=== PATIENT | female | born 1970 ===

== ENCOUNTER 2019-02-11 19:47 | Emergency (ER) | payer SELFPAY ==
[2019-02-11 20:01] VITALS: BP 111/71
--- NOTE | 2019-02-11 20:34 | Event Note ---
ED Screening Note Date of service: 02/11/19 Time: 20:24 ED Screening Note: Patient reports chest pain. Reports that Dr. Isaacs reports that she has a hole in heart but unaware of specific location.. Report Dr. Ford with stestesscope. Denies any heart procedures. Chest pain x 1 month.Pain let chest and travela tto upper and lower back. Numbness and pain in left arm. Pain sharp.Pain is better after given asa asa oin Pain 8/10.. reports vomitting and nausea.. Reports sob. No cough. No abdominal pain. . Chills Alert and nont toxic in appearance++ VSS, AFEB CV S1S2 RRR Lungs: CTAB EXT. No CCE. +2 pulses Chest pain- Protocol This initial assessment/diagnostic orders/clinical plan/treatment(s) is/are subject to change based on patients health status, clinical progression and re- assessment by fellow clinical providers in the ED. Further treatment and workup at subsequent clinical providers discretion. Patient/guardian urged not to elope from the ED as their condition may be serious if not clinically assessed and managed. Initial orders include: CP protocol
[2019-02-11 20:58] LABS: Basophils # (Auto) 0.1 K/mm3 (0.0-0.1); Basophils % (Auto) 0.8 % (0.0-1.8); Eosinophils # (Auto) 0.2 K/mm3 (0.0-0.4); Eosinophils % (Auto) 2.6 % (0.0-4.3); Hematocrit 41.6 % (30.3-42.9); Hemoglobin 14.2 gm/dl (10.1-14.3); Lymphocytes # (Auto) 1.8 K/mm3 (1.2-5.4); Lymphocytes % (Auto) 19.8 % (13.4-35.0); Mean Corpuscular HGB Conc 34 % (30-34); Mean Corpuscular Volume 89 fl (79-97); Monocytes # (Auto) 0.4 K/mm3 (0.0-0.8); Monocytes % (Auto) 4.3 % (0.0-7.3); Platelet Count 314 K/mm3 (140-440); Red Cell Distribution Width 13.1 % (13.2-15.2)
[2019-02-11 21:10] LABS: INR 0.92 (0.87-1.13)
[2019-02-11 21:11] LABS: Partial Thromboplastin Time 27.5 Sec. (24.2-36.6)
[2019-02-11 21:18] LABS: Alanine Aminotransferase 25 units/L (7-56); BUN/Creatinine Ratio 20; Blood Urea Nitrogen 10 mg/dL (7-17); Calcium 8.7 mg/dL (8.4-10.2); Hemolysis Index 11
[2019-02-11] MEDS ORDERED: KETOROLAC 30 MG/1 ML INJ IV ONE (21:59)
--- NOTE | 2019-02-11 22:04 | Emergency Department Report ---
ED Chest Pain HPI - General Chief Complaint: Chest Pain Stated Complaint: CHEST PAIN Time Seen by Provider: 02/11/19 20:23 Source: patient, EMS Mode of arrival: Wheelchair Limitations: Language Barrier - History of Present Illness Initial Comments: Patient is a 48-year-old female with no significant past medical history. Patient brought to the emergency room accompanied by her daughter who is translating for her. She stated that she been having chest pain, sharp with no radiation mainly to the left upper chest. She stated that pain is increased w ith movement of her left shoulder. Patient denied any shortness of breath, fever or cough. MD Complaint: chest pain - Related Data Allergies Allergy/AdvReac Type Severity Reaction Status Date / Time No Known Allergies Allergy Unverified 02/11/19 20:31 Heart Score - HEART Score History: Slightly suspicious EKG: Normal Age: 45-65 Risk factors: No known risk factors Troponin: < normal limit HEART Score: 1 - Critical Actions Critical Actions: 0-3 pts:0.9-1.7%risk of adverse cardiac event.Candidate for discharge ED Review of Systems ROS: Stated complaint: CHEST PAIN Other details as noted in HPI Comment: All other systems reviewed and negative Constitutional: denies: chills, fever Respiratory: denies: cough, shortness of breath, SOB with exertion, SOB at rest, wheezing Cardiovascular: chest pain. denies: palpitations Gastrointestinal: denies: abdominal pain, nausea, vomiting, diarrhea, constipation, hematemesis, melena, hematochezia Musculoskeletal: denies: back pain Neurological: denies: headache, weakness, numbness, paresthesias, confusion, abnormal gait ED Past Medical Hx - Past Medical History Previous Medical History?: Yes Additional medical history: Heart Murmur - Surgical History Past Surgical History?: Yes Additional Surgical History: Hysterectomy - Social History Smoking Status: Never Smoker Substance Use Type: None ED Physical Exam - General Limitations: Language Barrier General appearance: alert, in no apparent distress - Head Head exam: Present: atraumatic, normocephalic, normal inspection - Eye Eye exam: Present: normal appearance - ENT ENT exam: Present: normal exam, normal orophraynx, mucous membranes moist - Neck Neck exam: Present: normal inspection, full ROM. Absent: tenderness, meningismus, lymphadenopathy, thyromegaly - Respiratory Respiratory exam: Present: normal lung sounds bilaterally, chest wall tenderness. Absent: respiratory distress, wheezes, rales, rhonchi, stridor, accessory muscle use, decreased breath sounds, prolonged expiratory - Cardiovascular Cardiovascular Exam: Present: regular rate, normal rhythm, normal heart sounds - GI/Abdominal GI/Abdominal exam: Present: soft, normal bowel sounds. Absent: distended, tenderness, guarding, rebound, rigid, organomegaly, mass, bruit, pulsatile mass, hernia - Extremities Exam Extremities exam: Present: normal inspection, full ROM, normal capillary refill. Absent: pedal edema, calf tenderness - Back Exam Back exam: Present: normal inspection, full ROM. Absent: CVA tenderness (R), CVA tenderness (L), muscle spasm, paraspinal tenderness, vertebral tenderness - Neurological Exam Neurological exam: Present: alert, oriented X3, CN II-XII intact, normal gait, reflexes normal - Psychiatric Psychiatric exam: Present: normal mood - Skin Skin exam: Present: warm, intact, normal color ED Course Vital Signs 02/11/19 20:00 Temperature 98.9 F Pulse Rate 78 Respiratory 12 Rate Blood Pressure 111/71 O2 Sat by Pulse 97 Oximetry ED Medical Decision Making - Lab Data Result diagrams: 02/11/19 20:40 02/11/19 20:40 - EKG Data -: EKG Interpreted by Tx EKG shows normal: sinus rhythm Rate: normal - EKG Data Interpretation: no acute changes - Radiology Data Radiology results: image reviewed - Medical Decision Making Patient is a 48-year-old female with no significant past medical history. Patient brought to the emergency room accompanied by her daughter who is translating for her. She stated that she been having chest pain, sharp with no radiation mainly to the left upper chest. She stated that pain is increased with movement of her left shoulder. Patient denied any shortness of breath, fever or cough. EKG show no ST elevation or depression. Chest x-ray is unremarkable. Labs reviewed and is unremarkable including a negative troponin. Patient has significant tenderness to the left upper chest consistent with costochondritis. Patient received Toradol 30 mg IV and stated that she is feeling much better. Patient given a prescription for Naprosyn 500 mg twice a day for 7 days and advised to follow obvious primary care physician in the next 2-3 days and to return to the ER if symptoms are not improved. Critical care attestation.: If time is entered above; I have spent that time in minutes in the direct care of this critically ill patient, excluding procedure time. ED Disposition Clinical Impression: Chest pain, Costochondritis, acute Disposition: DC-01 TO HOME OR SELFCARE Is pt being admited?: No Condition: Stable Instructions: Chest Pain (ED), Costochondritis (ED) Referrals: [facility] [Provider Group] - 3-5 Days
--- NOTE | 2019-02-11 22:43 | XRay Report ---
CHEST 2 VIEWS INDICATION: Chest Pain. COMPARISON: None FINDINGS: Support devices: None. Heart: Within normal limits. Lungs/pleura: No acute air space or interstitial disease. No pneumothorax. Additional findings: None. IMPRESSION: 1. No acute findings. Signer Name: Tom Lincoln MD Signed: 02/11/2019 10:38 PM Workstation Name: [id number]
== END 2019-02-11 22:22 | disposition home or self-care (01) ==
LOC: ED 19:47
DX: M94.0 Chondrocostal junction syndrome [Tietze] (principal); Z90.710 Acquired absence of both cervix and uterus
CPT/HCPCS: 36415; 71046; 80053; 84484; 85025; 85610; 85730; 93005; 93010; 96374; 99284; J1885